=== PATIENT | female | born 1990 | race Caucasian/White ===

== ENCOUNTER 2024-02-25 18:26 | Emergency (ER) | payer OTHER, SELFPAY ==
[2024-02-25] MEDS ORDERED: Venlafaxine HCl 25 MG TAB PO SCH (19:30)
== END 2024-02-25 19:43 | disposition home or self-care (01) ==
LOC: ERS 18:26
DX: F19.239 Other psychoactive substance dependence with withdrawal, unspecified (principal); R11.0 Nausea; R42 Dizziness and giddiness; F31.9 Bipolar disorder, unspecified; F41.9 Anxiety disorder, unspecified; Z55.6 Problems related to health literacy
CPT/HCPCS: 93005; 99284